=== PATIENT | female | born 1955 | race Caucasian/White ===

== ENCOUNTER → 2021-07-27 14:48 | Outpatient (BNVA) | payer BC, SELFPAY | PROVIDERS: PCP Internal Medicine; Visit Provider Psychiatry & Neurology Neurology ==

== ENCOUNTER → 2022-05-21 08:51 | Outpatient (BNVA) | payer MEDICARE, SELFPAY | PROVIDERS: PCP Physician Assistant Medical; Visit Provider Psychiatry & Neurology Neurology | DX: F95.9 Tic disorder, unspecified (principal); G47.33 Obstructive sleep apnea (adult) (pediatric) | CPT/HCPCS: 99212 ==

== ENCOUNTER → 2022-11-19 09:18 | Outpatient (BNVA) | payer MEDICARE, SELFPAY | PROVIDERS: PCP Physician Assistant Medical; Visit Provider Psychiatry & Neurology Neurology | DX: G47.33 Obstructive sleep apnea (adult) (pediatric) (principal); F95.9 Tic disorder, unspecified | CPT/HCPCS: 99212 ==

== ENCOUNTER 2023-05-22 10:22 | Outpatient (AMB) | payer MEDICARE, SELFPAY ==
--- NOTE | 2023-05-22 10:34 | A.OFFVIS_ITS ---
Intake Vital Signs 05/22/23 10:36 Height 5 ft 3.5 in Weight 165 lb BMI 28.8 BP 130/78 Blood Pressure Location Rt brachial Position Sitting Respiration 16 Pulse 78 Pulse Source Pulse Oximeter Pulse Oximetry (%) 97 Oxygen Delivery Method Room Air Intake Visit Reasons: 6m follow up - Confirmed Intake Note: Pt presents for a 6 month follow up for NIRMALA. [employer] Required: No Allergies No Known Allergies Allergy (Verified 05/22/23 10:34) Medication List - Last Reconciled 05/22/23 by Lo Orozco MD alendronate 70 mg PO QWEEK atorvastatin 20 mg PO DAILY citalopram 20 mg PO DAILY clonidine HCl 0.1 mg PO BEDTIME duloxetine 40 mg PO DAILY fluticasone propionate 50 mcg/actuation (Flonase Allergy Relief) 1 spray intranasal DAILY ibuprofen 800 mg PO Q8H PRN levothyroxine 112 mcg PO DAILY losartan 25 mg PO DAILY magnesium oxide 500 mg PO DAILY riboflavin (vitamin B2) (Vitamin B-2) 400 mg PO QAM HPI HPI Comments History of Present Illness Details 67y/o female comes for follow up of obst ructive sleep apnea and vocal TICS comes for follow up.she was seen by Dr. Duvall and he changed medications which helped her a lot. 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 It has stabilized now. Her TICS are stable now.CPAP compliance 90% Her mood is stable. she seeing a therapist which is helping [facility] Medical History Aspiration pneumonia Seasonal allergic reaction Hypothyroidism Obstructive sleep apnea Tic disorder Surgical History H/O colonoscopy Hx of appendectomy Hx of cholecystectomy Family History Father Heart disease Brother Motor tic disorder Social History Household Members: None Household Members Other:: 2 DOGS Alcohol intake: current Alcohol intake frequency: does not drink Patient Tobacco Use Status: Never used Tobacco Current occupational status: retired Physical Exam Vital Signs: Last Vital Signs Pulse 78 05/22/23 10:36 Resp 16 05/22/23 10:36 BP 130/78 05/22/23 10:36 Pulse Ox 97 05/22/23 10:36 Oxygen Delivery Method Room Air 05/22/23 10:36 BMI result Body Mass Index 28.8 Const General: cooperative, healthy appearing, comfortable and no acute distress Nutritional Appearance: average body habitus Orientation/consciousness: patient oriented x3 Neck Neck: Yes no meningeal signs Neuro Other: mild TICS or abnormal movements General: patient oriented x3, gait normal, tone normal, moves all extremities, Normal light touch and pain sensation, no meningeal signs, no focal motor deficits and CN's II-XI intact bilaterally Assessment & Plan Assessment & Plan (1) Tic disorder: Code(s): F95.9 - Tic disorder, unspecified (2) Obstructive sleep apnea: Code(s): G47.33 - Obstructive sleep apnea (adult) (pediatric) Plan CPAP pressure to 13 cm of water Clonidine 0.1mg qhs - wants to try tapering . Coding Level of Care Code Est Pt Level 4 (38559) Diagnoses Tic disorder F95.9 Obstructive sleep apnea G47.33
[2023-05-22 10:36] VITALS: BP 130/78; PULSE 78; RESP 16; O2SAT 97; BMI 28.8
== END 2023-05-22 10:57 | disposition home or self-care (01) ==
PROVIDERS: PCP Physician Assistant Medical; Visit Provider Psychiatry & Neurology Neurology
DX: F95.9 Tic disorder, unspecified (principal); G47.33 Obstructive sleep apnea (adult) (pediatric)
CPT/HCPCS: 99214

== ENCOUNTER → 2023-05-22 10:22 | Outpatient (BNVA) | payer MEDICARE, SELFPAY | PROVIDERS: PCP Physician Assistant Medical; Visit Provider Psychiatry & Neurology Neurology | DX: F95.9 Tic disorder, unspecified (principal); G47.33 Obstructive sleep apnea (adult) (pediatric) | CPT/HCPCS: 99212 ==

== ENCOUNTER 2023-11-27 10:09 | Outpatient (AMB) | payer MEDICARE, SELFPAY ==
--- NOTE | 2023-11-27 10:29 | MHC.OFFVIS ---
Vital Signs 11/27/23 10:40 Height 5 ft 3.5 in Weight 157 lb 6 oz BMI 27.4 BP 132/70 Blood Pressure Location Lt brachial Position Sitting Respiration 16 Pulse 58 Pulse Source Pulse Oximeter Pulse Oximetry (%) 99 Oxygen Delivery Method Room Air Intake Visit Reasons: follow up NIRMALA - LVM w/add Intake Note: Patient presents for f/u NIRMALA. Waking up at night often and having trouble falling back to sleep. Allergies No Known Allergies Allergy (Verified 11/27/23 10:38) Medication List - Last Reconciled 11/27/23 by Lo Orozco MD alendronate 70 mg PO QWEEK atorvastatin 20 mg PO DAILY citalopram 20 mg PO DAILY clonidine HCl 0.1 mg PO BEDTIME escitalopram oxalate 10 mg PO DAILY fluticasone propionate 50 mcg/actuation (Flonase Allergy Relief) 1 spray intranasal DAILY ibuprofen 800 mg PO Q8H PRN levothyroxine 112 mcg PO DAILY losartan 25 mg PO DAILY magnesium oxide 500 mg PO DAILY riboflavin (vitamin B2) (Vitamin B-2) 400 mg PO QAM HPI Comments Details: 68y/o female comes for follow up of obstructive sleep apnea and vocal TICS comes for follow up.she has a new CPAP for past 6 mths which does not transmit automatically so I was unable to view her compliance.She is not sleeping well. she falls asleep and wakes up 20 minutes later and has trouble falling asleep. Her TICS are stable she was seen by Dr. Duvall and he changed medications which helped her a lot.Duloxetine worsened her restless legs. Her mood is stable. she seeing a therapist which is helping Migraines are stable [facility] Medical History Aspiration pneumonia Seasonal allergic reaction Hypothyroidism Obstructive sleep apnea Tic disorder Surgical History H/O colonoscopy Hx of appendectomy Hx of cholecystectomy Family History Father Heart disease Brother Motor tic disorder Social History Household Members: None Household Members Other:: 2 DOGS Alcohol intake: current Alcohol intake frequency: does not drink Patient Tobacco Use Status: Never used Tobacco Current occupational status: retired Physical Exam Vital Signs: Last Vital Signs Pulse 58 11/27/23 10:40 Resp 16 11/27/23 10:40 BP 132/70 11/27/23 10:40 Pulse Ox 99 11/27/23 10:40 Oxygen Delivery Method Room Air 11/27/23 10:40 BMI result Body Mass Index 27.4 Const General: cooperative, healthy appearing, comfortable and no acute distress Nutritional Appearance: average body habitus Orientation/consciousness: patient oriented x3 Neck Neck: Yes no meningeal signs Neuro Other: mild TICS or abnormal movements General: patient oriented x3, gait normal, tone normal, moves all extremities, Normal light touch and pain sensation, no meningeal signs, no focal motor deficits and CN's II-XI intact bilaterally Assessment & Plan Assessment & Plan (1) Tic disorder: Code(s): F95.9 - Tic disorder, unspecified Category: Medical (2) Obstructive sleep apnea: Code(s): G47.33 - Obstructive sleep apnea (adult) (pediatric) Category: Medical Plan CPAP pressure to 13 cm of water Compliance report Clonidine 0.1mg qhs - wants to try tapering . Try melatonin 3-5 mgq hs Medications: New clonazepam administer 30 minutes before bedtime 0.5 mg PO BEDTIME Coding Level of Care Code Est Pt Level 4 (15550) Complex EM visit Add On G2211 Diagnoses Tic disorder F95.9 Obstructive sleep apnea G47.33
[2023-11-27 10:40] VITALS: BP 132/70; PULSE 58; RESP 16; O2SAT 99; BMI 27.4
== END 2023-11-27 11:06 | disposition home or self-care (01) ==
PROVIDERS: PCP Physician Assistant Medical; Visit Provider Psychiatry & Neurology Neurology
DX: F95.9 Tic disorder, unspecified (principal); G47.33 Obstructive sleep apnea (adult) (pediatric)
CPT/HCPCS: 99214; G2211

== ENCOUNTER → 2023-11-27 10:09 | Outpatient (BNVA) | payer MEDICARE, SELFPAY | PROVIDERS: PCP Physician Assistant Medical; Visit Provider Psychiatry & Neurology Neurology | DX: F95.9 Tic disorder, unspecified (principal); G47.33 Obstructive sleep apnea (adult) (pediatric) | CPT/HCPCS: 99212 ==

== ENCOUNTER → 2023-11-28 14:55 | Outpatient (REF) | payer MEDICARE, SELFPAY | LOC: HO.SL 14:55 | PROVIDERS: PCP Physician Assistant Medical; Visit Provider Psychiatry & Neurology Neurology | DX: G47.33 Obstructive sleep apnea (adult) (pediatric) (principal) | CPT/HCPCS: 95806 ==

== ENCOUNTER → 2023-11-28 15:04 | Outpatient (BNV) | payer MEDICARE, SELFPAY | PROVIDERS: PCP Physician Assistant Medical; Visit Provider Psychiatry & Neurology Neurology | DX: G47.33 Obstructive sleep apnea (adult) (pediatric) (principal) | CPT/HCPCS: 95806 ==

== ENCOUNTER 2024-06-08 12:18 | Outpatient (AMB) | payer MEDICARE, SELFPAY ==
--- OUTSIDE RECORDS SUMMARY | 2024-06-08 12:20 | XMS_ITS | Patient Health Record ---
Author Organization [facility] Address [address] [address] Care Team Providers Care Counter Supply Worker Name Role Phone Marcio Qureshi Primary Care Provider Unavail able Allergies No Known Allergies Reason For Referral No Information Medications Medication SIG (Take, Route, Frequency, Duration) Notes Start Date End Date Status cloNIDine HCl 0.1 MG 1 tablet Orally Onc e a day Active Diclofenac Sodium 1 % 2 grams to foot Externally twice a day for 30 days 01/07/2023 Active Levothyroxine Sodium 112 MCG 1 tablet in the morning on an empty stomach Orally Once a day Active Citalopram Hydrobromide 40 MG 0.5 tablet Orally Once a day Active Losartan Potassium 25 MG 1 tablet Orally Once a day Active clonazePAM 0.5 MG 1 tablet at bedtime Orally Once a day Active Fluticasone Propionate 50 MCG/ACT 2 sprays (1 spray in each nostril) Nasally Once a day Active Multivitamin - 1 tablet Orally Once a day Active Benadryl Allergy 25 MG 1 tablet at bedti me as needed Orally Once a day Not-Taking Atorvastatin Calcium 10 MG 1 tablet Oral ly Once a day Active Problems Problem Type SNOMED Code ICD Code Onset Dates Problem Status W/U Status Risk Notes Problem [id number] Acquired hallux rigidus of left foot (M20.22) Active confirmed Problem [id number] Acquired hallux valgus of right foot (M20.11) Active confirmed Plan Of Treatment No Information Insurance Providers Payer Name Payer Address Payer Phone Subscriber Number Group Number Insured Name Patient Relationship to Insured Coverage Start Date Coverage End Date [employer] of [place] [address] [place] [phone] [id number] Beth Ott Self - patient is the insured [employer] [facility] [address] [place] [address] [phone] [id number] Beth Ott Self - patient is the insured Medical (General) History Medical History History ICD Code hypertension + COVID 09/2021 microcalcification of left breast on ever[place] mogram diverticulitis of intestine without perf oration or abscess without bleeding Tic disorder prediabetes vitamin D deficiency hypothyroidism thyroid nodule sleep apnea depression dysplasia of cervix- laser tx prediabetes seasonal allergies osteoporosis hyperlipidemia COVID vaccinated X 5 Surgical History Surgery Date(Month/Year) BX bilateral breast; perc needle core w/ imaging guid appendectomy cholecystectomy colonoscopy breast reduction 2003 BX right breast needle core W/O imaging guidance SPX- benign 06/2018 left breast procedure bx- benign 2018 upper GI endoscopy- mild ero sive antritis and linear erosions in fundus and cardia; small HH 11/25/2015 Hospitalization History Reason Date(Month/Year) cholecystectomy appendectomy diverticulitis 2022
--- OUTSIDE RECORDS SUMMARY | 2024-06-08 12:20 | XMS_ITS | Patient Health Record ---
Author Organization [facility] Address [address] [facility] [place] [address] Care Team Providers Care Manager Collection Name Role Phone Lei Gregory MD Primary Care Provider Isauro Grigsby Unavailable [phone] Reason For Referral No Information Medications Medication SIG (Take, Route, Fr equency, Duration) Notes Start Date End Date Status Levothyroxine Sodium Active Citalopram Hydrobromide Active cloNIDine HCl Active clonazePAM Active Social History Tobacco Use: Social History Observation Description Date Details (start date - stop date) Never Smoker NA - NA Tobacco Use/Smoking Question Answer Notes Are you a: nonsmoker Additional Findings: Tobacco Non-User Aggressive non-smoker Alcohol Screen Question Answer Notes Did you have a drink containing alcohol in the p ast year? No Points 0 Interpretation Negative Tobacco use other than smoking: Question Answer Notes Are you an other tobacco user? No Plan Of Treatment No Information Insurance Providers Payer Name Payer Address Payer Phone Subscriber Number Group Number Insured Name Patient Relationship to Insured Coverage Start Date Coverage End Date [facility] All Others [address] [place] [address] [id number] Beth Ott Self - patient is the insured Medical (General) History Medical History History ICD Code Anxiety Gall bladder problems Measles Mumps Chicken pox Surgical History Surgery Date(Month/Year)
[2024-06-08 12:26] VITALS: BP 104/70; PULSE 62; O2SAT 95; BMI 26.8
--- NOTE | 2024-06-08 12:26 | MHC.OFFVIS ---
Vital Signs 06/08/24 12:26 Height 5 ft 3.5 in Weight 154 lb BMI 26.8 BP 104/70 Blood Pressure Location Lt brachial Position Sitting Pulse 62 Pulse Source Pulse Oximeter Pulse Oximetry (%) 95 Oxygen Delivery Method Room Air Intake Visit Reasons: follow up NIRMALA Intake Note: patient stated she fractured her femur 4years and now she is having shooting nerve pain radiating from her right thumb and index finger up her arm that started X6 months getting worse x6 weeks Accompanied by: Self / Same As Patient Allergies No Known Allergies Allergy (Verified 06/08/24 12:30) HPI Comments Details: 68y/o female comes for follow up of obstructive sleep apnea and vocal TICS. She recently moved and travelled so sleep is fragmented, now averaging 4-6 hours or more. Tics are generally fine unless if she gets a cold or allergies tend to worsen them. She is taking Clonidine for TICs, would like to taper off, if possible as the Vocal Tics are more stable now. She has a new CPAP for past 12 mos which does not transmit automatically so disc needs to be sent to [facility] for reading. She is having shooting pain up the arm, R. hand, and thumb, second digit. She was dx with Carpal Tunnel when younger, has a hx of osteoarthritis, takes 200mg Ibuprofen OTC, and has a hand brace. She continues to have L. hand weakness and R. hand pain, sharp, radiating up the R. arm. Denies injuries. She was seen by Dr. Duvall and he changed medications which helped her a lot.Duloxetine worsened her restless legs. Her mood is stable, diet is good, works out 5 times a week with a emr trainer. She is migraine-free. [facility] Medical History Aspiration pneumonia Seasonal allergic reaction Hypothyroidism Obstructive sleep apnea Tic disorder Surgical History H/O colonoscopy Hx of appendectomy Hx of cholecystectomy Family History Father Heart disease Brother Motor tic disorder Social History Household Members: None Household Members Other:: 2 DOGS Alcohol intake: current Alcohol intake frequency: does not drink Patient Tobacco Use Status: Never used Tobacco Current occupational status: retired Review of Systems Const All systems reviewed & are unremarkable except as noted in HPI and below ENT Reports Normal hearing present Neuro Reports Normal hearing present and Reports Abnormal speech present Physical Exam Vital Signs: Last Vital Signs Pulse 62 06/08/24 12:26 BP 104/70 06/08/24 12:26 Pulse Ox 95 06/08/24 12:26 Oxygen Delivery Method Room Air 06/08/24 12:26 BMI result Body Mass Index 26.8 Const General: cooperative, comfortable and no acute distress Nutritional Appearance: average body habitus Orientation/consciousness: patient oriented x3 HEENT Throat: Yes other ([place] score of 3) Eyes Pupils: Equal, round and reactive pupils present Neck Neck: Yes full ROM and Yes supple Resp Effort & Inspection: normal respiratory effort Neuro General: patient oriented x3 and moves all extremities Cranial nerves: Yes CN's II-XII intact bilaterally, Yes Facial sensation intact/muscles of mastication intact, Yes Equal, round and reactive pupils present, Yes Normal accommodation reflex present, Yes Bilaterally intact EOM present, Yes Nystagmus not present, Yes Normal facial strength present, Yes Midline tongue present, Yes Normal hearing present, Yes Ability to bilaterally rotate head present and Yes Ability to bilaterally elevate shoulders present Cognition (Neuro): normal cognition Speech: Abnormal speech present Gait exam (Neuro): Normal gait present Motor exam (neuro): 5/5 motor strength present throughout and Normal motor muscle tone present throughout Deep tendon reflexes (DTR's): Right triceps reflex intensity grade: 2+, Left triceps reflex intensity grade: 2+, Rt Biceps (C5, C6): 2+, Left biceps reflex intensity grade: 2+, Right brachioradialis reflex intensity grade: 2+, Left brachioradialis reflex intensity grade: 2+, Right patellar reflex intensity grade: 2+ and Left patellar reflex intensity grade: 2+ Psych Appearance: grossly normal Speech and movement: Normal speech and movement present Affect: normal affect Thought process: Normal thought process present Thought content: Normal thought content present Results Reviewed Results Reviewed: CPAP unable d/t patient forgot to send disc to [facility] for data retrieval. Assessment & Plan Assessment & Plan (1) Bilateral hand pain: Code(s): M79.641 - Pain in right hand; M79.642 - Pain in left hand Category: Medical (2) Tic disorder: Code(s): F95.9 - Tic disorder, unspecified Category: Medical (3) Obstructive sleep apnea: Code(s): G47.33 - Obstructive sleep apnea (adult) (pediatric) Category: Medical (4) Right hand pain: Code(s): M79.641 - Pain in right hand Category: Medical Plan -CPAP pressure to 13 cmH20. Compliance report, data needs to be acquired from [facility], from her disc. Will continue to use melatonin 3-5 mg PO qhs. -Tics are stable on come on with stress or cold or allergy symptoms. Clonidine 0.1mg qhs - wants to try tapering. Will try Gabapentin in the future if PLMS/ or RLS gets worse. -PT for R. hand, radiating pain up to the arm, and left hand weakness. Xray R. hand - R/O fracture / anatomical snuff box deformity / Carpal Tunnel? Orders: Orders PT Evaluation and Treatment Today M79.641 - Pain in right hand XR hand RT min 3V Today M79.641 - Pain in right hand Coding Level of Care Code Est Pt Level 4 (13461) Diagnoses Bilateral hand pain M79.641; M79.642 Tic disorder F95.9 Obstructive sleep apnea G47.33 Right hand pain M79.641 Time Spent (min) 40 Comment Worsening R. hand pain.
== END 2024-06-08 13:32 | disposition home or self-care (01) ==
PROVIDERS: PCP Physician Assistant Medical; Visit Provider Physician Assistant Medical
DX: M79.641 Pain in right hand (principal); M79.642 Pain in left hand; F95.9 Tic disorder, unspecified; G47.33 Obstructive sleep apnea (adult) (pediatric)
CPT/HCPCS: 99214

== ENCOUNTER → 2024-06-08 12:18 | Outpatient (BNVA) | payer MEDICARE, SELFPAY | PROVIDERS: PCP Physician Assistant Medical; Visit Provider Physician Assistant Medical | DX: G47.33 Obstructive sleep apnea (adult) (pediatric) (principal); F95.9 Tic disorder, unspecified; M79.641 Pain in right hand; M79.642 Pain in left hand; Z99.89 Dependence on other enabling machines and devices | CPT/HCPCS: 99212 ==

== ENCOUNTER 2024-12-08 12:51 | Outpatient (AMB) | payer MEDICARE, SELFPAY ==
[2024-12-08 13:00] VITALS: BP 108/72; PULSE 50; O2SAT 98; BMI 26.3
--- NOTE | 2024-12-08 13:00 | MHC.OFFVIS ---
Vital Signs 12/08/24 13:00 Height 5 ft 3.5 in Weight 151 lb BMI 26.3 BP 108/72 Blood Pressure Location Lt brachial Position Sitting Pulse 50 Pulse Source Pulse Oximeter Pulse Oximetry (%) 98 Oxygen Delivery Method Room Air Intake Visit Reasons: follow up NIRMALA Intake Note: Patient presents follow up NIRMALA. CPAP does not transmit, No Labs. Patient states forgot to send SD card in to get report. Accompanied by: Self / Same As Patient Allergies No Known Allergies Allergy (Verified 12/08/24 13:07) HPI Comments Details: 69 y/o female comes for follow up of obstructive sleep apnea and vocal TICS. Vocal Tics are suppressed but worse as her environmental allergies are triggered. She has pronounced lateral jaw movement now, wakes up with sore mandible/ Jaw pain is new symptom with a creepy crawly uncomfortable sensation felt bilaterally on arms and legs through out the day since starting Trazadone she thinks. She would like to taper off of Clonidine, if possible as the Vocal Tics are more stable now. Sleep has intermittent sleep her nose pads are uncomfortable and she notices nodular cystic acne, pimple like bump protruding from the l. nare, she denies pain. She goes to bed at 11pm and takes the mask off at 1pm in her sleep, and is usually using her cpap for about 3-3.5 hours. Pt. states she is always fatigued. She takes clonidine for the vocal tics, trazadone for sleep, and losartan for bp at bedtime. She has a new CPAP for past 12 mos which does not transmit automatically so disc needs to be sent to [facility] for reading. She walks on the treadmill for a mile, incline strength training core, calves, squat workout, push up, and planks. Julia Galloway works out daily 3-4x a week at [employer]. She has shooting pain up the arm, R. hand, and thumb, second digit, she has arthritis in r. thumb, gets cortisone shots q 3months. She was dx with Carpal Tunnel, EMG shows R. hand CTS, Noel Hyl[facility], occupation therapy has helped with CTS and pain is alleviated with cortisone shots. Acetaminophen prn and hand brace not needed anymore. Memory is stable and Mood has improved on lexapro 10mg q AM, duloxetine worsened her restless legs. She denies headaches, migraine-free. She is mindful when changing positions as she notices symptoms of orthostatic hypotension, bradycardia after a meal or coffee. pt education provided re: hydration, and slow positional changes. [facility] Medical History Aspiration pneumonia Seasonal allergic reaction Hypothyroidism Obstructive sleep apnea Tic disorder Surgical History H/O colonoscopy Hx of appendectomy Hx of cholecystectomy Family History Father Heart disease Brother Motor tic disorder Social History Household Members: None Household Members Other:: 2 DOGS Alcohol intake: current Alcohol intake frequency: does not drink Patient Tobacco Use Status: Never used Tobacco Current occupational status: retired Review of Systems ENT Reports Normal hearing present Neuro Reports Normal hearing present and Reports Abnormal speech present Physical Exam Vital Signs: Last Vital Signs Pulse 50 12/08/24 13:00 BP 108/72 12/08/24 13:00 Pulse Ox 98 12/08/24 13:00 Oxygen Delivery Method Room Air 12/08/24 13:00 BMI result Body Mass Index 26.3 Const General: cooperative, comfortable and no acute distress Nutritional Appearance: average body habitus Orientation/consciousness: patient oriented x3 HEENT Throat: Yes other ([place] score of 3) Eyes Pupils: Equal, round and reactive pupils present Neck Neck: Yes full ROM and Yes supple Resp Effort & Inspection: normal respiratory effort Neuro Other: r. sided manibular movements, jerking motion, and upper facial tics, blinks rapidly General: patient oriented x3 and moves all extremities Cranial nerves: Yes Facial sensation intact/muscles of mastication intact, Yes Equal, round and reactive pupils present, Yes Bilaterally intact EOM present, Yes Nystagmus not present, Yes Normal facial strength present, Yes Midline tongue present, Yes Normal hearing present, Yes Ability to bilaterally rotate head present and Yes Ability to bilaterally elevate shoulders present Cognition (Neuro): normal cognition Speech: Abnormal speech present Gait exam (Neuro): Normal gait present Motor exam (neuro): 5/5 motor strength present throughout and Normal motor muscle tone present throughout Psych Appearance: grossly normal Affect: normal affect Thought process: Normal thought process present Thought content: Normal thought content present Results Reviewed Results Reviewed: Dalila needs her SD card for information on her disc., compliance not available today. Assessment & Plan Assessment & Plan (1) Obstructive sleep apnea: Code(s): G47.33 - Obstructive sleep apnea (adult) (pediatric) Category: Medical (2) Excessive daytime sleepiness: Code(s): G47.19 - Other hypersomnia Category: Medical (3) Fatigue: Code(s): R53.83 - Other fatigue Category: Medical Qualifiers: Fatigue type: chronic, unspecified Qualified Code(s): R53.82 - Chronic fatigue, unspecified (4) Bilateral hand pain: Comment: cts Code(s): M79.641 - Pain in right hand; M79.642 - Pain in left hand Category: Medical (5) Tic disorder: Code(s): F95.9 - Tic disorder, unspecified Category: Medical (6) Bruxism, sleep-related: Comment: sleep dentistry Code(s): G47.63 - Sleep related bruxism Category: Medical Plan PSG to evaluate sleep behaviors, tics, jaw clenching -CPAP pressure to 13 cmH20. Compliance report, data needs to be acquired from [facility], from her disc. Will continue to use melatonin 3-5 mg PO qhs. -Tics are stable will come on with stress or cold or allergy symptoms. Clonidine 0.1mg qhs - wants to try tapering. Will try Gabapentin in the future if PLMS/ or RLS gets worse. -PT for R. hand, radiating pain up to the arm, and left hand weakness. Xray R. hand - R/O fracture / anatomical snuff box deformity / Carpal Tunnel Labs to r/o deficiencies. Orders: Orders RT PSG in-lab sleep study Today G47.19 - Other hypersomnia, G47.33 - Obstructive sleep apnea (adult) (pediatric) Complete Blood Count no Diff Today G47.19 - Other hypersomnia, R53.83 - Other fatigue Comprehensive Met. Panel Today G47.19 - Other hypersomnia, R53.83 - Other fatigue IRON PROFILE Today G47.19 - Other hypersomnia, G47.9 - Sleep disorder, unspecified, R53.83 - Other fatigue TSH reflex Free T4 Today G47.19 - Other hypersomnia, R53.83 - Other fatigue Vitamin B12 and Folate Today G47.19 - Other hypersomnia, R53.83 - Other fatigue Parathyroid Hormone Intact Today G47.19 - Other hypersomnia, R53.83 - Other fatigue Ferritin Today G47.19 - Other hypersomnia, R53.83 - Other fatigue Hemoglobin A1c Today G47.19 - Other hypersomnia, R53.83 - Other fatigue Homocysteine Today G47.19 - Other hypersomnia, G47.9 - Sleep disorder, unspecified, R53.83 - Other fatigue Magnesium Today G47.19 - Other hypersomnia, R53.83 - Other fatigue Methylmalonic Acid Today G47.19 - Other hypersomnia, G47.9 - Sleep disorder, unspecified, R53.83 - Other fatigue Vitamin D 25-OH Total Today G47.19 - Other hypersomnia, R53.83 - Other fatigue Patient Instructions: Sleep Hygiene provided: set a scheduled bedtime and wake time to help regulate the circadian rhythm and balance the release of pituitary hormones. Sleep in a dark room, temperatures below 68 degrees, and no devices n bed. Limit caffeinated products 6 hours prior to bed, and limit fluids 2-4 hours prior to bed. Gentle night yoga, diffusing essential oils, and playing soft music can be relaxing. Coding Level of Care Code Est Pt Level 4 (26575) Complex EM visit Add On G2211 Diagnoses Obstructive sleep apnea G47.33 Excessive daytime sleepiness G47.19 Chronic fatigue R53.82 Fatigue type: chronic, unspecified Bilateral hand pain M79.641; M79.642 Tic disorder F95.9 Bruxism, sleep-related G47.63 Time Spent (min) 35 Comment sleep compliance data requested
--- OUTSIDE RECORDS SUMMARY | 2024-12-08 13:44 | XMS_ITS | Encounter Summary ---
Author Organization [facility] Address [address] [place] [address] Care Team Providers Care Senior Windows Engineer Name Role Phone Lei Gregory MD Primary Care Provider [phone] Marcio Herbert PA-C Primary Care Provider [phone] Encounter Details Date Type Department Care Team Description 04/27/2015 Registered Dietitian Report Medical Records [address] [place] [id number] Lo Orozco MD Social History Tobacco Use Types Packs/Day Years Used Date Smoking Tobacco: Never Smokeless Tobacco: Never Alcohol Use Standard Drinks/Week Comments Yes 0 (1 standard drink = 0.6 oz pur e alcohol) rare Sex Assigned at Date Recorded Not on file Job Start Date Occupation Industry Not on file Not on file Not on file documented as of this encounter Plan of Treatment Not on file documented as of this encounter Visit Diagnoses Not on filedocumented in this encounter Care Teams Senior Windows Engineer Relationship Specialty Start Date End Date Lei Gregory MD [address] [place] [address] [id number] PCP - General 03/10/1991 11/21/20 Marcio Herbert PA-C [address] [place] [address] [id number] PCP - General Internal Medicine 11/22/20 documented as of this encounter
--- OUTSIDE RECORDS SUMMARY | 2024-12-08 13:44 | XMS_ITS | Patient Health Record ---
Author Organization [facility] Address [address] [facility] [address] [facility] [place] [address] Care Team Providers Care Tanning Wheel Operator Name Role Phone aMrcio Qureshi Primary Care Provider Unavail able Allergies [...] Problem Status W/U Status Risk Notes Problem [id number] Acquired hallux rigidus of left foot (M20.22) Active confirmed Problem [id number] Acquired hallux valgus of right foot (M20.11) Active confirmed Plan Of Treatment No Information Insurance Providers Payer Name Payer Address Payer Phone Subscriber Number Group Number Insured Name Patient Relationship to Insured Coverage Start Date Coverage End Date Medicare of [place] [address] [place] [phone] [id number] Beth Ott Self - patient is the insured [employer] [facility] [address] [place] [address] [phone] [id number] Beth Ott Self - patient is [...]
--- OUTSIDE RECORDS SUMMARY | 2024-12-08 13:44 | XMS_ITS | Clinical Summary ---
Author Organization [facility] Address [address] [place] [address] Care Team Providers Care Handicrafts Teacher Name Role Phone Marcio Herbert PA-C Primary Care Provider Un available Allergies Active Allergy Reactions Criticality Noted Date Comments Pollen Extract Other (See Comments) Low 11/02/2010 Medications alendronate (FOSAMAX) 70 MG tablet Take 1 tablet (70 mg total) by mouth every 7 days. 11/08/2023 Active atorvastatin (LIPITOR) 20 MG tablet Take 1 tablet (20 mg total) by mouth. Active diphenhydrAMINE (BENADRYL) 25 MG tablet Take 1 tablet (25 mg total) by mouth. Active escitalopram (LEXAPRO) 10 MG tablet Take 1 tablet (10 mg total) by mouth. Active fluticasone (FloNASE) 50 mcg/spray nasal spray 2 sprays into each nostril. Active levothyroxine (SYNTHROID, LEVOTHROID) 88 MCG tablet Take 1 tablet (88 mcg total) by mouth. Active losartan (COZAAR) 25 MG tablet Take 1 tablet (25 mg total) by mouth. Active meloxicam (MOBIC) 15 MG tablet Take 1 tablet (15 mg total) by mouth. 07/01/2024 Active traZODone (DESYREL) 50 MG tablet TAKE 1 TO 3 TABLET BY MOUTH AT BEDTIME NEEDED FOR SLEEP 12/30/2023 Active Family History Relation Name Status Comments Father Mother Alive Social History Tobacco Use Types Packs/Day Years Used Date Smoking Tobacco: Never Smokeless Tobacco: Never Tobacco Cessation:Counseling Given: Not Answered Alcohol Use Standard Drinks/Week Comments Not Currently 0 (1 standard drink = 0.6 oz pur e alcohol) Comments No Sex and Gender Information Value Date Recorded Sex Assigned at Female 07/15/2024 1:23 PM EST Legal Sex Female 4:22 PM EST Gender Identity Female 07/15/2024 1:23 PM EST Sexual Orientation Heterosexual (straight) 07/15 1:23 PM EST Last Filed Vital Signs Vital Sign Reading Time Taken Comments Blood Pressure 140/55 07/17/2024 8:18 AM EST Pulse 60 07/17/2024 8:10 AM EST Temperature 36.5 C (97.7 F) 07/17/2024 8:10 AM EST Respiratory Rate - - Oxygen Saturation 99% 07/17/2024 8:10 AM EST Inhaled Oxygen Concentration - - Weight 68.9 kg (152 lb) 07/17/2024 8:10 AM EST Height 161.3 cm (5' 3.5 ) 07/17/2024 8:10 AM EST Body Mass Index 26.5 07/17/2024 8:10 AM EST Plan of Treatment Health Maintenance Due Date Last Done Comments Hepatitis C Virus Screening 1957 DTaP/Tdap/Td Vaccines (1 - Tdap) 1976 Mammogram 1997 Colonoscopy 2002 Pneumococcal Vaccines 50+ (1 of 1 - PCV) 2007 Zoster (Shingles) Vaccine (1 of 2) 2007 DXA Bone Density (Females,Ages 65 and older) 2022 COVID-19 Vaccine ( season) 2024 03/16/2023, 03/16/2022, 11/24/2021, Additional history exists Influenza Vaccine 01/08/2025 03/16/2023, , 03/10/2022, Additional history exists RSV Vaccine 60 years and older and Patients (1 - 1-dose 75+ series) 2032 Hepatitis B Vaccines Aged Out No long er eligible based on patient's age to complete this topic Insurance MEDICARE PART A & B [facility] Care Teams Handicrafts Teacher Relationship Specialty Start Date End Date Marcio Herbert PA-C PCP - General Internal Medicine 07/15/24
--- OUTSIDE RECORDS SUMMARY | 2024-12-08 13:44 | XMS_ITS | Patient Health Record ---
Author Organization [facility] Address [address] [facility] [place] [address] Care Team Providers Care Web Services Manager Name Role Phone Lei Gregory MD Primary Care Provider Isauro Grigsby Unavailable [phone] Reason For Referral No Information Medications Medication [...] Insured Coverage Start Date Coverage End Date [employer] [address] [place] [address] [phone] [id number] Beth Ott Self - patient is the insured Medical (General) History Medical History History ICD Code Anxiety Gall bladder problems Measles Mumps Chicken pox Surgical History Surgery Date(Month/Year)
--- OUTSIDE RECORDS SUMMARY | 2024-12-08 13:44 | XMS_ITS | Clinical Summary ---
Author Organization [facility] [address] [facility] Address [address] [place] [id number] Phone Care Team Providers Care Engineering Coordinator Name Role Phone Marcio Herbert Primary Care Provider [phone] Allergies Active Allergy Reactions Criticality Noted Date Comments Pollen Extracts 11/02/2010 Medications MULTIVITAMIN ORAL Take by mouth. Activ e fluticasone propionate (FLONASE) 50 mcg/actuation nasal spray Administer 2 sprays into affected nostril(s). Active losartan (COZAAR) 25 mg tablet TAKE 1 TABLET BY MOUTH EVERY DAY 30 tablet 11 4 Active atorvastatin (LIPITOR) 20 mg tablet TAKE 1 TABLET BY MOUTH EVERY DAY 30 tablet 11 4 Active levothyroxine (SYNTHROID, LEVOTHROID) 88 mcg tablet TAKE 1 TABLET BY MOUTH EVERY DAY 30 tablet 11 5 Active traZODone (DESYREL) 50 mg tablet TAKE 1 TO 3 TABLET BY MOUTH AT BEDTIME NEEDED FOR SLEEP 90 tablet 5 5 Active escitalopram (LEXAPRO) 10 mg tablet Take 1 tablet (10 mg total) by mouth 1 (one) time each day. 5 Active cloNIDine (CATAPRES) 0.1 mg tablet Take 1 tablet (0.1 mg total) by mouth 1 (one) time each day. Active meloxicam (MOBIC) 15 mg tablet Take 1 tablet (15 mg total) by mouth 1 (one) time each day after dinner. 90 tablet 1 5 Active alendronate (FOSAMAX) 70 mg tablet TAKE 1 TABLET BY MOUTH ONE TIME PER WEEK 4 tablet 5 5 Active Active Problems Problem Noted Date Diagnosed Date Class 1 obesity 04/22/2024 Age related osteoporosis 06/29/2022 Overview (08/18/2023): Started Fosamax treatment June 2022 Primary hypertension 12/06/2021 History of 2019 novel coronavirus disease (COVID -19) 09/19/2021 Microcalcification of left breast on mammogram 0 01/07/2019 Diverticulitis of intestine without perforation or abscess without bleeding 06/18/2017 Tic disorder 05/02/2015 Prediabetes 09/09/2014 Vitamin D deficiency 12/26/2010 Hypothyroidism 10/09/2006 Sleep apnea 08/27/2005 Overview (08/18/2023): Dr. Orozco in neuro Thyroid nodule 08/27/2005 Overview (08/18/2023): Last US 05/06/2019 - Atrophic heterogeneous thyroid gland without discrete nodules. Depression 04/18/2005 Dysplasia of cervix (uteri) 04/18/2005 Overview (08/18/2023): IMO update Elevated blood pressure read ing without diagnosis of hypertension 04/18/2005 Overview (08/18/2023): Previously taking HCTZ but not on any meds for several years with adequate bp control BP Readings from Last 5 Encounters: 02/03/16 136/80 11/25/15 131/61 11/21/15 120/80 10/31/15 122/86 09/13/15 120/78 Immunizations Name Administration Dates Next Due Influenza Quadravalent, MDCK , 0.5ml, preservative free (Flucelvax) 6mo and older 03/10/2022,04/18/2019,04/05/2018 Influenza Quadravalent, MDCK , 0.5ml, with preservative (Flucelvax) 6mo and older 04/07/2021,05/14/2017 Influenza trivalent, 0.5mL ( Fluzone High-dose) 65yo and older 03/16/2023 Influenza trivalent, with pr eservative (Fluzone; Afluria) 6mo and older 04/07/2021,02/23/2020,03/09/2015 Moderna (age 6mo & older) Bi valent, COVID-19, 0.5 mL or 0.25 mL dosage 03/16/2022 Pneumococcal conjugate 20 va lent (Prevnar 20, PCV 20) 2mo and older 06/26/2023 Pneumococcal polysaccharide 23 valent (Pneumovax 23) 2yo and older 06/13/2022 RSV, bivalent, protein subun it RSVpreF, 0.5mL, Preservative Free (Arexvy) 60yo and older 04/26/2023 Td Tetanus diptheria (Tdvax) 7yo and older 06/14 Zoster recombinant (Shingrix ) 19yo and older 06/06/2020,05/27/2020,02/19/2020 Surgical History Surgery Date Site/Laterality Comments CHOLECYSTECTOMY PROCEDURE: HISTORICAL CHOLECYSTECTOMY APPENDECTOMY PROCEDURE: HISTORICAL APPENDECTOMY UPPER GASTROINTESTINAL ENDOSCOPY 11/25/2015 PROCEDURE: GA UPPER GI ENDOSCOPY PERFORMED; COMMENT: mild erosive antritis and linear erosions in fundus and cardia; small HH COLONOSCOPY 07/29/2007 PROCEDURE: HISTORICAL COLONOSCOPY; COMMENT: Negative COLONOSCOPY 08/12/2017 PROCEDURE: HISTORICAL COLONOSCOPY; COMMENT: [facility], no polyps. Multiple diverticula. BREAST BIOPSY Bilateral PROCEDURE: BX BREAST; PERC NEEDLE CORE W/IMAG GUID BREAST BIOPSY 06/2018 Right PROCEDURE: GA BX BREAST NEEDLE CORE W/O IMAGING GUIDANCE SPX; COMMENT: Benign BREAST REDUCTION 2003 Bilateral PROCEDURE: GA BREAST REDUCTION; COMMENT: reduction, BREAST SURGERY 2018 Left PROCEDURE: GA UNLISTED PROCEDURE BREAST; COMMENT: bx benign COLONOSCOPY 10/05/2022 PROCEDURE: HISTORICAL COLONOSCOPY; COMMENT: muslu - diverticulosis, hemorrhoids repeat 10 years Medical History Medical History Date Comments Nontoxic uninodular goiter 08/27/2005 DX:No ntoxic uninodular goiter Unspecified sleep apnea 08/27/2005 DX:Unspe cified sleep apnea Special screening for malign ant neoplasms, colon 07/29/2007 DX:Special screening for mal ignant neoplasms, colon; COMMENT: Negative colonoscopy 07/29/2007, no colon cancer screening needed for 10 years. Other specified personal his tory presenting hazards to health(V15.89) DX:Other specifie d personal history presenting hazards to health(V15.89); COMMENT: leep DE LA CRUZ (dyspnea on exertion) 07/15/2017 DX:DE LA CRUZ (dyspnea on exertion); COMMENT: Normal TTE 07/2017, and stress test Diverticulosis DX:Diverticulosi s Diverticulitis DX:Diverticuliti s Abdominal discomfort DX:Abdomina l discomfort Change in bowel movement DX:Linares ge in bowel movement Gassiness DX:Gassiness Diverticulosis DX:Diverticulosi s Aspiration pneumonia (CMS/HC C V24, CMS/HCC V28) DX:Aspiration pneumonia (HCC ) Paralyzed vocal cords DX:Paralyz ed vocal cords Family History Medical History Relation Name Comments Coronary artery disease Father Heart attack Father Breast cancer Mother's side LCIS 56 /75 Breast cancer Paternal Grandmother 60s in her 60's Colon cancer Neg Hx Ovarian cancer Neg Hx Relation Name Status Comments Brother Alive Daughter Alive Father (Age 84) renal cell cancer premature cad dm Mother 50s LCIS Alive Mother's side LCIS 56 Alive Paternal Grandmother 60s Sister Alive Social History Tobacco Use Types Packs/Day Years Used Date Smoking Tobacco: Never Smokeless Tobacco: Never Tobacco Cessation:Counseling Given: Not Answered Alcohol Use Standard Drinks/Week Comments No 0 (1 standard drink = 0.6 oz pur e alcohol) Housing Instability Answer Date Recorde d Are you worried that in the next 2 months you may not have stable housing? No 06/24/2024 Food Access & Nutrition Answer Date Rec orded Do you have access to a vari ety of food including fruits and vegetables? Yes 06/24/2024 Access to Healthcare Answer Date Record ed Within the last 3 months, ho w many times did you visit the emergency department for your medical care? 0 06/24/2024 Health Literacy Answer Date Recorded How often do you need to hav e someone help you when you read instructions, pamphlets, or other written material from your doctor or pharmacy? Never 06/24/2024 Caregiver: How often do you need to have someone help you when you read instructions, pamphlets, or other written material from your doctor or pharmacy? Not on file 06/24/2024 Financial Risk Answer Date Recorded How hard is it for you to pa y for the very basics like food, housing, medical care, and air conditioning / heating? Not very hard 06/24/2024 Transportation Answer Date Recorded Has the lack of transportati on kept you from meetings, work, or from getting things needed for daily living? No Has the lack of transportati on kept you from medical appointments or from getting medications? No 06/24/2024 Social Isolation Answer Date Recorded How often do you feel lonely or isolated from those around you? Sometimes 06/24/2024 Food Risk Answer Date Recorded Within the past 12 months we worried whether our food would run out before we got money to buy more. Never true 06/24/2024 Within the past 12 months th e food we bought just didn't last and we didn't have money to get more. Never true 06/24/2024 Dependent Care Answer Date Recorded Do you need help finding or paying for care for your loved ones. For example, children's service worker or elderly care for an older adult? No 06/24/2024 Education Answer Date Recorded Do you think completing more education or training, like finishing a GED, going to college, or learning a trade, would be helpful for you? No 06/24/2024 Employment and Income Answer Date Recor ded During the last four weeks, have you been actively looking for work? No 06/24/2024 Living Situation Answer Date Recorded What is your living situation? 0 06/24/2024 Comments Unknown Sex and Gender Information Value Date Recorded Sex Assigned at Not on file Legal Sex Female 1:47 PM EST Gender Identity Not on file Sexual Orientation Not on file Obstetrics History Last Filed Vital Signs Vital Sign Reading Time Taken Comments Blood Pressure 115/60 08/31/2024 1:29 PM EDT Pulse 54 08/31/2024 1:50 PM EDT Temperature 36.1 C (97 F) 08/31/2024 1:29 PM EDT Respiratory Rate 15 08/31/2024 1:29 PM EDT Oxygen Saturation 100% 10/30/2023 8:0 4 AM EDT at rest, room air Inhaled Oxygen Concentration - - Weight 69.2 kg (152 lb 9.6 oz) 08/31/2024 1:29 PM EDT Height 160 cm (5' 3 ) 08/31/2024 1:29 PM EDT Body Mass Index 27.03 08/31/2024 1:29 PM EDT Plan of Treatment Upcoming Encounters Date Type Department Care Team (Late st Contact Info) Description 12/30/2024 8:30 AM EDT Office Visit Adult Medicine [facility] [address] [place] [phone] Marcio Herbert PA [address] [place] [address] Health Maintenance Due Date Last Done Comments DTaP,Tdap,and Td Vaccines (2 - Td or Tdap) 06/14/2018 06/14/2008 Medicare Annual Wellness Visit 05/19/2022 COVID-19 Vaccine ( season) 2024 03/16/2023, 03/16/2022, 11/24/2021, Additional history exists Influenza Vaccine (Season Ended) 2025 03/16/2023, 03/10/2022, 04/07/2021, Additional history exists Breast Cancer Screening 02/20/2025 02/21/20 23, 02/14/2022, 10/24/2020, Additional history exists Depression Screening 06/24/2025 06/24/2024, 12/25/19 23 Social Influencers of Health Screening 06/24/2025 06/24/2024 Falls Risk Assessment 07/01/2025 07/01/2024, 023 Hypertension/CHF/CAD Annual BMP Blood Test 07/01/2025 07/01/2024, 12/30/2023 Cholesterol Screening (Lipid Panel) 07/01/2029 07/01/2024, 12/30/2023, 06/19/2023 Osteoporosis Screening (Bone Density Screening) 06/28/2032 06/28/2022 Colorectal Cancer Screening: Colonoscopy 10/05/2032 10/05/2022 Zoster Vaccines Completed 06/06/2020, 05/10, 02/19/2020 RSV Immunization Adult Patients Completed 04/26/2023 Pneumococcal Vaccine: 50+ Years Completed 06/26/2023, 06/13/2022 Hepatitis C Screening Completed 07/01/2024 HIB Vaccines Aged Out No longer eligi ble based on patient's age to complete this topic HPV Vaccines Aged Out No longer eligi ble based on patient's age to complete this topic Hepatitis A Vaccines Aged Out No long er eligible based on patient's age to complete this topic Hepatitis B Vaccines Aged Out No long er eligible based on patient's age to complete this topic IPV Vaccines Aged Out No longer eligi ble based on patient's age to complete this topic MMR Vaccines Aged Out No longer eligi ble based on patient's age to complete this topic Meningococcal ACWY Vaccine Aged Out N o longer eligible based on patient's age to complete this topic Meningococcal B Vaccine Aged Out No l onger eligible based on patient's age to complete this topic RSV Immunization Patients Under 20 months Aged Out No longer eligible based on patient's age to complete this topic Varicella Vaccines Aged Out No longer eligible based on patient's age to complete this topic Procedures Procedure Name Priority Date/Time Associated Diagnosis Comments HEPATITIS C ANTIBODY Routine 07/01/2024 9:29 AM EST Trochanteric bursitis of both hips Right hand pain Age related osteoporosis, unspecified pathological fracture presence Primary hypertension Prediabetes Hypothyroidism, unspecified type COMPREHENSIVE METABOLIC PANEL Routine 07/01/2024 9:29 AM EST Trochanteric bursitis of both hips Right hand pain Age related osteoporosis, unspecified pathological fracture presence Primary hypertension Prediabetes Hypothyroidism, unspecified type LIPID PANEL WITH REFLEX TO DIRECT LDL Routine 07/01/2024 9:29 AM EST Trochanteric bursitis of both hips Right hand pain Age related osteoporosis, unspecified pathological fracture presence Primary hypertension Prediabetes Hypothyroidism, unspecified type SCREENING MAMMOGRAPHY BI 2-VIEW BREAST INC CAD Routine 02/20/2023 9:18 AM EDT Encounter for screening mammogram for malignant neoplasm of breast DXA BONE DENSITY STUDY 1+ SITS AXIAL SKEL Routine 06/28/2022 2:24 PM EST Essential (primary) hypertension Prediabetes Elevated blood-pressure reading, without diagnosis of hypertension Depression, unspecified Other specified hypothyroidism Vitamin D deficiency, unspecified Nontoxic single thyroid nodule Sleep apnea, unspecified Encounter for immunization from Last 3 Months or Most Recently Relevant to Health Maintenance Results * Hepatitis C antibody (07/01/2024 9:29 AM EST) [facility] Hepatitis C Antibody Negative Negative LAB CHEMISTRY METHOD 07/01/2024 3:12 PM EST [facility] Blood Venous blood specimen / Unknown Venipuncture / Unknown 07/01/2024 9:29 AM EST 07/01/2024 9:29 AM EST Marcio FUNEZ LAB BLOOD ORDERABLES Lillian l Result [facility] [address] [place] [address], [place] [phone] * Lipid panel with reflex to direct LDL (07/01/2024 9:29 AM EST) [facility] Cholesterol 141 0 - 200 mg/dL LAB CHEMISTRY METHOD 07/01/2024 2:42 PM EST [facility] Triglycerides 89 0 - 150 mg/dL LAB CHEMISTRY METHOD 07/01/2024 2:42 PM EST [facility] HDL 63 >=40 mg/dL LAB CHEMISTRY METHOD 07/01/2024 2:42 PM [facility] LDL Calculated 60 0 - 100 mg/dL LAB CHEMISTRY METHOD 07/01/2024 2:42 PM EST [facility] VLDL Cholesterol Edgar 17.8 mg/dL LAB CHEMISTRY METHOD 07/01/2024 2:42 PM EST [facility] Non HDL Chol. (LDL+VLDL) 78 <145 mg/dL LAB CHEMISTRY METHOD 07/01/2024 2:42 PM [facility] Chol/HDL Ratio 2.2 0.0 - 4.4 LAB CHEMISTRY METHOD 07/01/2024 2:42 PM [facility] Blood Venous blood specimen / Unknown Venipuncture / Unknown 07/01/2024 9:29 AM EST 07/01/2024 9:29 AM EST Marcio FUNEZ LAB BLOOD ORDERABLES Lillian l Result [facility] [address] [place] [address], [place] [phone] * (ABNORMAL) Comprehensive metabolic panel (07/01/2024 9:29 AM EST) Sodium 138 133 - 145 mmol/L LAB CHEMISTRY METHOD 07/01/2024 2:42 PM [facility] Potassium 4.5 3.5 - 5.5 mmol/L LAB CHEMISTRY METHOD 07/01/2024 2:42 PM [facility] Chloride 108 96 - 110 mmol/L LAB CHEMISTRY METHOD 07/01/2024 2:42 PM [facility] CO2 25 21 - 32 mmol/L LAB CHEMISTRY METHOD 07/01/2024 2:42 PM [facility] Anion Gap 5 3 - 11 LAB CHEMISTRY METHOD 07/01/2024 2:42 PM [facility] Glucose 104(H) 70 - 100 mg/dL LAB CHEMISTRY METHOD 07/01/2024 2:42 PM [facility] BUN 16 5 - 25 mg/dL LAB CHEMISTRY METHOD 07/01/2024 2:42 PM [facility] Creatinine 1.00 0.50 - 1.10 mg/dL LAB CHEMISTRY METHOD 07/01/2024 2:42 PM [facility] eGFR 62 >=60 mL/min/1. 73m2 LAB CHEMISTRY METHOD 07/01/2024 2:42 PM [facility] Comment:Calculation based on the Chronic Kidney Disease Epidemiology Collaboration (CKD-EPI) equation refit without adjustment for race. BUN/Creatinine Ratio 16.0 LAB CHEMISTRY METHOD 07/01/2024 2:42 PM [facility] Calcium 9.4 8.5 - 10.5 mg/dL LAB CHEMISTRY METHOD 07/01/2024 2:42 PM [facility] AST (SGOT) 20 10 - 42 unit/L LAB CHEMISTRY METHOD 07/01/2024 2:42 PM [facility] ALT (SGPT) 25 10 - 60 unit/L LAB CHEMISTRY METHOD 07/01/2024 2:42 PM [facility] Alkaline Phosphatase 70 42 - 121 unit/L LAB CHEMISTRY METHOD 07/01/2024 2:42 PM [facility] Total Protein 7.6 6.0 - 8.0 g/dL LAB CHEMISTRY METHOD 07/01/2024 2:42 PM [facility] Albumin 4.2 3.2 - 5.0 g/dL LAB CHEMISTRY METHOD 07/01/2024 2:42 PM [facility] Total Bilirubin 0.9 0.0 - 1.4 mg/dL LAB CHEMISTRY METHOD 07/01/2024 2:42 PM [facility] Blood Venous blood specimen / Unknown Venipuncture / Unknown 07/01/2024 9:29 AM EST 07/01/2024 9:29 AM EST us Marcio FUNEZ LAB BLOOD ORDERABLES Lillian l Result [facility] [address] [place] [address], * SCREENING MAMMOGRAPHY BI 2-VIEW BREAST INC CAD (02/20/2023 9:18 AM EDT) Anatomical Region Laterality Modality Radiographic Lynda ging 02/14/2022 2:30 PM EDT Narrative 02/20/2023 5:50 PM EDT This is a summary report. The complete report is available in the patient's medical record. If you cannot access the medical record, please contact the sending organization for a detailed fax or copy. Study: SCREENING MAMMOGRAPHY BI 2-VIEW BREAST INC CAD Technique: Bilateral full-field digital screening mammography is obtained and read in conjunction with computer aided detection. Tomosynthesis as well as 2D C-View imaging were obtained. Comparison: Comparison made to multiple prior, most recent February 14, 2022, and most remote July 04, 2018. Breast composition: There are scattered areas of fibroglandular density. Right breast: Previous reduction mammoplasty. Tissue marker from previous needle core biopsy. No suspicious masses, suspicious calcifications or other abnormalities are seen. Left breast: Previous reduction mammoplasty. Tissue marker from previous needle core biopsy. No suspicious masses, suspicious calcifications or other abnormalities are seen. IMPRESSION: Impression: Bilateral breasts: Benign, no specific mammographic evidence of malignancy. Normal interval follow-up is recommended in 12 months. BI-RADS: Category 2: Benign Procedure Note Shannon Cruz MD - 07/16/2023 This is a summary report. The complete report is available in thepatient's medical record. If you cannot access the medical record, pleasecontact the sending organization for a detailed fax or copy. Study: SCREENING MAMMOGRAPHY BI 2-VIEW BREAST INC CAD Technique: Bilateral full-field digital screening mammography is obtainedand read in conjunction with computer aided detection. Tomosynthesis aswell as 2D C-View imaging were obtained. Comparison: Comparison made to multiple prior, most recent February, and most remote July 04, 2018. Breast composition: There are scattered areas of fibroglandular density. Right breast: Previous reduction mammoplasty. Tissue marker from previousneedle core biopsy. No suspicious masses, suspicious calcifications orother abnormalities are seen. Left breast: Previous reduction mammoplasty. Tissue marker from previousneedle core biopsy. No suspicious masses, suspicious calcifications orother abnormalities are seen. IMPRESSION: Impression: Bilateral breasts: Benign, no specific mammographic evidence ofmalignancy. Normal interval follow-up is recommended in 12 months. BI-RADS: Category 2: Benign Marcio FUNEZ IMAntonio XR PROCEDURES Final R esult * DXA BONE DENSITY STUDY 1+ SITS AXIAL SKEL (06/28/2022 2:24 PM EST) Anatomical Region Laterality Modality Bone Densitometr y 06/13/2022 9:00 AM EST Narrative 06/28/2022 3:48 PM EST BONE DENSITY (DEXA) Lumbar Spine T-score is -2.7. (SD relative to 20-29 y/o adult) Z-score is -0.9. (SD relative to age matched peers) This is considered osteoporosis by WHO criteria. Left Hip T-score is -2.7. Z-score is -1.2 This is considered osteoporosis by WHO criteria. IMPRESSION: This patient is considered to have osteoporosis by WHO criteria. The [facility] Department of Internal Medicine recommends using National Osteoporosis Foundation (NOF) guidelines in treatment decisions related to osteoporosis. NOF guidelines suggest considering treatment for postmenopausal women and men aged 50 or older presenting with the following: History of hip or vertebral fracture. T-score = -2.5 (DXA) at the femoral neck, total hip, or spine, after appropriate evaluation to exclude secondary causes. Low bone mass (T-score between -1.0 and -2.5 at the femoral neck or spine) AND a 10-year probability of a hip fracture = 3% OR a 10-year probability of a major osteoporosis-related fracture = 20% based on the [place]-adapted WHO algorithm Please note that all treatment decisions require clinical judgment and consideration of individual patient factors, including patient preferences, co-morbidities, previous drug use, risk factors not captured in the FRAX model (e.g., frailty, falls, vitamin D deficiency, increased bone turnover, interval significant decline in bone density) and possible under- or over-estimation of fracture risk by FRAX. Optional alternative screening schedule based on tarun Garcia., [facility] June 28, 2011 for patients with osteopenia (based on hip BMD T-score) is as follows: * advanced osteopenia (T scores -2.00 to -2.49), BMD testing every year * moderate osteopenia (T scores -1.50 to -1.99), BMD testing every 5 years mild osteopenia or normal BMD (T scores -1.50 and higher), BMD testing every 15 years Procedure Note Geno Garcia MD - 07/15/2023 BONE DENSITY (DEXA) Lumbar Spine T-score is -2.7. (SD relative to 20-29 y/o adult) Z-score is -0.9. (SD relative to age matched peers) This is considered osteoporosis by WHO criteria. Left Hip T-score is -2.7. Z-score is -1.2 This is considered osteoporosis by WHO criteria. IMPRESSION: This patient is considered to have osteoporosis by WHO criteria. The [facility] Department of Internal Medicine recommendsusing National Osteoporosis Foundation (NOF) guidelines in treatment decisions related toosteoporosis. NOF guidelines suggest considering treatment for postmenopausal women and menaged 50 or older presenting with the following: History of hip or vertebral fracture. T-score = -2.5 (DXA) at the femoral neck, total hip, or spine, afterappropriate evaluation to exclude secondary causes. Low bone mass (T-score between -1.0 and -2.5 at the femoral neck or spine)AND a 10-year probability of a hip fracture = 3% OR a 10-year probability of a majorosteoporosis-related fracture = 20% based on the [place]-adapted WHO algorithm Please note that all treatment decisions require clinical judgment andconsideration of individual patient factors, including patient preferences, co- morbidities,previous drug use, risk factors not captured in the FRAX model (e.g., frailty, falls, vitaminD deficiency, increased bone turnover, interval significant decline in bone density) andpossible under- or over-estimation of fracture risk by FRAX. Optional alternative screening schedule based on tarun Garcia., NEJMJanuary 2011 for patients with osteopenia (based on hip BMD T-score) is as follows: * advanced osteopenia (T scores -2.00 to -2.49), BMD testing every year * moderate osteopenia (T scores -1.50 to -1.99), BMD testing every 5years mild osteopenia or normal BMD (T scores -1.50 and higher), BMD testingevery 15 years Marcio FUNEZ IMG DXA PROCEDURES Final Result from Last 3 Months or Most Recently Relevant to Health Maintenance Insurance MEDICARE [facility] Care Teams Engineering Coordinator Relationship Specialty Start Date End Date Marcio Herbert PA [address] [place] [phone] PCP - General Internal Medicine 11/22/20
== END 2024-12-08 14:00 | disposition home or self-care (01) ==
LOC: HO.HSMS 12:52
PROVIDERS: PCP Physician Assistant Medical; Visit Provider Physician Assistant Medical
DX: G47.33 Obstructive sleep apnea (adult) (pediatric) (principal); G47.19 Other hypersomnia; R53.82 Chronic fatigue, unspecified; M79.641 Pain in right hand; M79.642 Pain in left hand; F95.9 Tic disorder, unspecified; G47.63 Sleep related bruxism
CPT/HCPCS: 99214; G2211

== ENCOUNTER → 2024-12-08 12:51 | Outpatient (BNVA) | payer MEDICARE, SELFPAY | PROVIDERS: PCP Physician Assistant Medical; Visit Provider Physician Assistant Medical | DX: G47.33 Obstructive sleep apnea (adult) (pediatric) (principal); F95.9 Tic disorder, unspecified; G47.63 Sleep related bruxism; G47.19 Other hypersomnia; R53.82 Chronic fatigue, unspecified; M79.641 Pain in right hand; M79.642 Pain in left hand | CPT/HCPCS: 99212 ==